=== PATIENT | male | born 1985 | race African-American/Black ===

== ENCOUNTER 2018-11-15 14:46 | Emergency (ER) | payer SELFPAY ==
[~2018-11-15] VITALS: Ht 170.2 cm; Wt 95.0 kg
[2018-11-15] MEDS ORDERED: PERTUSS(ACELL),DIPH,TET VAC/PF 0.5 ML VIAL IM ONE (17:15)
[2018-11-15] MEDS ORDERED: LIDOCAINE 1% 10 ML VIAL INJ ONE (17:15)
[2018-11-15 18:06] VITALS: BP 138/89
== END 2018-11-15 18:45 | disposition home or self-care (01) ==
LOC: EMS 14:47
DX: S01.311A Laceration without foreign body of right ear, initial encounter (principal); W01.198A Fall on same level from slipping, tripping and stumbling with subsequent striking against other object, initial encounter; Y93.89 Activity, other specified; Y92.89 Other specified places as the place of occurrence of the external cause; Y99.8 Other external cause status
CPT/HCPCS: 12014; 90471; 90715; 99283; J3490